=== PATIENT | female | born 1965 | race Two or more races ===

== ENCOUNTER 2024-01-27 11:00 | Outpatient (CLI) | payer MEDICARE, MEDICAID ==
[2024-01-27] MEDS: TraZODone HCL 150 MG TABLET PO SCH (20:34)
[2024-01-27] MEDS: BENZTROPINE MESYLATE 1 MG TABLET PO SCH (20:34)
[2024-01-27] MEDS: RisperiDONE 1 MG TABLET PO SCH (20:34)
[2024-01-27 20:42] VITALS: BP 116/79; PULSE 68; RESP 18; TEMP 99; O2SAT 99
[2024-01-28] MEDS: FLUoxetine HCL 20 MG CAPSULE PO SCH (08:42)
[2024-01-28] MEDS: MetFORMIN HCL 500 MG TABLET PO SCH (08:42)
[2024-01-28 08:45] VITALS: BP 100/62; PULSE 75; RESP 20; TEMP 98; O2SAT 98
[2024-01-28 17:51] LABS: GLUCOMETER DEV NAME(LOC) POC.BV; POC SARS-COV2 AG, FIA NEGATIVE (NEGATIVE)
[2024-01-28 20:00] VITALS: BP 115/64; PULSE 77; RESP 14; TEMP 98.2; O2SAT 97
[2024-01-29 08:02] VITALS: BP 104/70; PULSE 72; RESP 16; TEMP 97.9; O2SAT 98
== END 2024-01-29 11:30 | disposition home or self-care (01) ==
LOC: CSU 11:00 → EDSTATUS 02-15 15:08
PROVIDERS: ATTEND Student in an Organized Health Care Education/Training Program
DX: F31.81 Bipolar II disorder (principal); F43.10 Post-traumatic stress disorder, unspecified; R45.851 Suicidal ideations; F12.20 Cannabis dependence, uncomplicated; F60.3 Borderline personality disorder; F29 Unspecified psychosis not due to a substance or known physiological condition; F14.20 Cocaine dependence, uncomplicated; Z20.822 Contact with and (suspected) exposure to COVID-19
CPT/HCPCS: 90839; 90840; Z7610